=== PATIENT | female | born 1980 | race Hispanic/Latino ===

== ENCOUNTER 2018-02-14 09:35 | Emergency (ER) | payer SELFPAY ==
[2018-02-14] MEDS ORDERED: METHYLPREDNISOLONE 125 MG INJ ONE (09:57)
[2018-02-14] MEDS ORDERED: LEVALBUTEROL 1.25 MG/3 ML NEB ONE (09:57)
[2018-02-14 10:17] LABS: Absolute Lymphocytes (CBC) 2.1 K/uL (0.7-4.9); Absolute Monocytes 0.5 K/uL (0.1-1.3); Basophils % 0.8 % (0-1.3); Eosinophils % 2.4 % (0-4.4); Hematocrit 44.8 % (36.0-45.0); Lymphocytes % 24.3 % (15.3-44.8); MCH 28.9 pg (27.0-35.0); MCV 85.8 fL (80-100); MPV 9.1 fL (7.6-11.3); Monocytes % 5.1 % (3.3-12.3); RBC Red Blood Cell Count 5.22 M/uL (3.86-4.86)
[2018-02-14 10:22] LABS: Protime INR 0.97
[2018-02-14] MEDS ORDERED: ASPIRIN 81 MG CHEWABLE TABLET ONE (10:30)
[2018-02-14 10:39] LABS: ALT/SGPT 25 U/L (12-78); AST/SGOT 16 U/L (15-37); Albumin 3.9 g/dL (3.4-5.0); Alkaline Phosphatase 80 U/L (45-117); BUN Blood Urea Nitrogen 10 mg/dL (7-18); Bicarbonate 27 mmol/L (21-32); Bilirubin Direct 0.2 mg/dL (0-0.2); Bilirubin Total 0.6 mg/dL (0.2-1.0); Glucose Level 83 mg/dL (74-106); Lipase 127 U/L (73-393); Magnesium 2.4 mg/dL (1.8-2.4); NT PRO-BNP 199 pg/mL (<125); Sodium Level 141 mmol/L (136-145)
[2018-02-14] MEDS ORDERED: ACETAMINOPHEN 500 MG TAB ONE (11:13)
[2018-02-14] MEDS ORDERED: NITROGLYCERIN 0.4 MG/TAB SL ONE (11:13)
--- NOTE | 2018-02-14 13:30 | RAD REPORT ---
EXAM DESCRIPTION: CT - Chest For Pe Angio - 02/14/2018 1:22 pm CLINICAL HISTORY: Chest pain and sob COMPARISON: None. TECHNIQUE: Dynamically enhanced axial 3 mm thick images of the chest were obtained during administra tion of <100> mL Isovue 370 IV contrast. Coronal and oblique reconstruction images were generated and reviewed. Exam utilizes a protocol for optimal evaluation of pulmonary arterial tree. Maximum intensity projections 3D imaging was utilized All CT scans are performed using dose optimization technique as appropriate and may include automated exposure control or mA/KV [id number] according to patient size. FINDINGS: A pulmonary embolus is not seen. A thoracic aortic aneurysm is not noted. A pleural effusion is not seen. A pericardial effusion is not seen. A lung consolidation is not present. IMPRESSION: Negative for a pulmonary embolism.
--- NOTE | 2018-02-14 13:31 | RAD REPORT ---
EXAM DESCRIPTION: Kwadwo Parish (2 Views)02/14/2018 10:23 am CLINICAL HISTORY: Chest pain COMPARISON: 2007 FINDINGS: The lungs appear clear of acute infiltrate. The heart is normal size IMPRESSION: No acute abnormalities displayed
[2018-02-14 13:51] LABS: Urine Blood TRACE (NEG); Urine Glucose NEGATIVE (NEG); Urine Protein NEGATIVE (NEG)
[2018-02-14] MEDS ORDERED: IPRATROPIUM BROM 0.5MG/2.5ML ONE (14:00)
[2018-02-14] MEDS ORDERED: ALBUTEROL 2.5 MG/3 ML NEB SOL ONE (14:00)
[2018-02-14 14:13] LABS: Urine Bacteria 20-50 /HPF (<20); Urine Culture Reflex Order REFLEXED
--- NOTE | 2018-02-14 14:30 | EDPHYS ---
Physician Documentation [facility] Name: Adelso Denise Age: 37 yrs Sex: Female : 1980 Arrival Date: 02/14/2018 Time: 09:36 Bed 16 Private MD: None, None ED Physician Yasir Grove HPI: 02/14 14:42 This 37 yrs old Female presents to ER via Wheelchair with complaints of Chest wa Pain, WHEEZING. 14:42 The patient or guardian reports chest pain that is located primarily in the substernal wa area. The pain does not radiate. Associated signs and symptoms: Pertinent positives: cough, shortness of breath, Pertinent negatives: abdominal pain, dizziness, lower extremity pain, lower extremity swelling, lightheadedness, near syncope, palpitations, vomiting. The chest pain is described as a heaviness. Duration: The patient or guardian reports a single episode, that is still ongoing, and worsening. Modifying factors: The symptoms are alleviated by nothing. the symptoms are aggravated by nothing. Severity of pain: At its worst the pain was moderate in the emergency department the pain is unchanged. The patient has experienced similar episodes in the past, a few times. The patient has not recently seen a physician. smoker. states living at a hse with 10 pets. also smokes cigarettes. does not take her labetalol because cannot afford it. . 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 - Social history:: Smoking status: Patient uses tobacco products, smokes one-half pack cigarettes per day. - Ebola Screening: : No symptoms or risks identified at this time. - Family history:: not pertinent. - Hospitalizations: : No recent hospitalization is reported. ROS: 14:47 Constitutional: Negative for fever, chills, and weight loss, Eyes: Negative for injury, wa pain, redness, and discharge, ENT: Negative for injury, pain, and discharge, Neck: Negative for injury, pain, and swelling, Abdomen/GI: Negative for abdominal pain, nausea, vomiting, diarrhea, and constipation, Back: Negative for injury and pain, : Negative for injury, bleeding, discharge, and swelling, MS/Extremity: Negative for injury and deformity, Skin: Negative for injury, rash, and discoloration, Neuro: Negative for headache, weakness, numbness, tingling, and seizure, Psych: Negative for depression, anxiety, suicide ideation, homicidal ideation, and hallucinations. 14:47 Cardiovascular: Positive for chest pain, with cough, Negative for edema, orthopnea, palpitations, paroxysmal nocturnal dyspnea. 14:47 Respiratory: Positive for cough, with no reported sputum, shortness of breath, at rest. wheezing, inspiratory, expiratory, Negative for hemoptysis, orthopnea, pleurisy. 14:47 All other systems are negative. Exam: 14:48 Head/Face: Normocephalic, atraumatic. Eyes: Pupils equal round and reactive to light, wa extra-ocular motions intact. Lids and lashes normal. Conjunctiva and sclera are non-icteric and not injected. Cornea within normal limits. Periorbital areas with no swelling, redness, or edema. ENT: Nares patent. No nasal discharge, no septal abnormalities noted. Tympanic membranes are normal and external auditory canals are clear. Oropharynx with no redness, swelling, or masses, exudates, or evidence of obstruction, uvula midline. Mucous membranes moist. Neck: Trachea midline, no thyromegaly or masses palpated, and no cervical lymphadenopathy. Supple, full range of motion without nuchal rigidity, or vertebral point tenderness. No Meningismus. Chest/axilla: Normal chest wall appearance and motion. Nontender with no deformity. No lesions are appreciated. Abdomen/GI: Soft, non-tender, with normal bowel sounds. No distension or tympany. No guarding or rebound. No evidence of tenderness throughout. Back: No spinal tenderness. No costovertebral tenderness. Full range of motion. Skin: Warm, dry with normal turgor. Normal color with no rashes, no lesions, and no evidence of cellulitis. MS/ Extremity: Pulses equal, no cyanosis. Neurovascular intact. Full, normal range of motion. Neuro: Awake and alert, GCS 15, oriented to person, place, time, and situation. Cranial nerves II-XII grossly intact. Motor strength 5/5 in all extremities. Sensory grossly intact. Cerebellar exam normal. Normal gait. Psych: Awake, alert, with orientation to person, place and time. Behavior, mood, and affect are within normal limits. 14:48 Constitutional: The patient appears alert, in obvious distress, mildly distressed, due to pain and shortness of breath. audible wheezing noted. 14:48 Cardiovascular: Rate: normal, Rhythm: regular, Pulses: no pulse deficits are appreciated, Heart sounds: normal, Edema: is not appreciated, JVD: is not appreciated. 14:48 Respiratory: mild respiratory distress is noted, Respirations: labored breathing, Breath sounds: wheezing: expiratory is heard diffusely, Respiratory rate: tachypneic Vital Signs: 09:40 BP 200 / 112; Pulse 81; Resp 20; Pulse Ox 97% ; Weight 81.65 kg; Height 5 ft. 4 in. sv (162.56 cm); Pain 5/10; 10:36 BP 181 / 113; Pulse 73; Resp 18; Pulse Ox 100% on 2 lpm NC; sv 11:49 BP 164 / 97; Pulse 64; Resp 18; Pulse Ox 98% on 2 lpm NC; sv 13:58 BP 158 / 97; Pulse 70; Resp 18; Pulse Ox 100% on Nebulizer Mask; tl3 14:45 BP 147 / 94; Pulse 67; Resp 18; Pulse Ox 100% on R/A; tl3 09:40 Body Mass Index 30.90 (81.65 kg, 162.56 cm) sv MDM: 09:41 Patient medically screened. ny 14:49 Differential diagnosis: acute myocardial infarction, anxiety, coronary artery disease wa congestive heart failure myocarditis, pericarditis, pneumonia, pulmonary embolus, unstable angina. 14:50 Data reviewed: vital signs, nurses notes, lab test result(s), EKG, radiologic studies. ny Test interpretation: by ED physician or midlevel provider: CXR noted wnl. labs noted wnl. EKG: HR 81. . 15:01 Response to treatment: the patient's symptoms have markedly improved after treatment. ny ED course: discussed the need to quit smoking. started HCTZ. gave close f/u. advised immediate return if persistent or worsening symptoms. 02/14 09:49 Order name: BMP; Complete Time: 10:48 ny 02/14 09:49 Order name: CBC with Diff; Complete Time: 10:48 ny 02/14 09:49 Order name: D-Dimer; Complete Time: 10:48 ny 02/14 09:49 Order name: Hepatic Function; Complete Time: 10:48 ny 02/14 09:49 Order name: Lipase; Complete Time: 10:48 02/14 09:49 Order name: Magnesium; Complete Time: 10:48 ny 02/14 09:49 Order name: XRAY Chest Pa And Lat (2 Views); Complete Time: 13:49 ny 02/14 09:49 Order name: NT PRO-BNP; Complete Time: 10:48 ny 02/14 09:49 Order name: PT-INR; Complete Time: 10:48 ny 02/14 09:49 Order name: Troponin (emerg Dept Use Only); Complete Time: 10:48 ny 02/14 13:08 Order name: Urine Microscopic Only [facility] 02/14 13:20 Order name: Urine Dipstick--Ancillary (enter results) 02/14 13:20 Order name: Urine --Ancillary (enter results) 02/14 14:15 Order name: Urine Culture [facility] 02/14 09:49 Order name: EKG; Complete Time: 09:50 ny 02/14 09:49 Order name: Cardiac monitoring; Complete Time: 10:16 ny 02/14 09:49 Order name: EKG - Nurse/Tech; Complete Time: 10:16 ny 02/14 09:49 Order name: IV Saline Lock; Complete Time: 10:16 ny 02/14 09:49 Order name: Labs collected and sent; Complete Time: 10:16 ny 02/14 09:49 Order name: O2 Per Protocol; Complete Time: 10:16 ny 02/14 09:49 Order name: O2 Sat Monitoring; Complete Time: 10:16 ny 02/14 10:51 Order name: CT Chest For PE Angio; Complete Time: 13:49 ny 02/14 09:49 Order name: Urine Dipstick-Ancillary (obtain specimen); Complete Time: 13:07 ny Administered Medications: 09:51 CANCELLED (Physician Discretion): Nitro-Bid Ointment 2 % 0.5 inches Transdermal once ny 09:55 Drug: Xopenex 1.25 mg Route: Inhalation; sv 10:01 Drug: SOLU-Medrol 125 mg Route: IVP; Site: right antecubital; sv 10:29 Follow up: Response: No adverse reaction sv 10:28 Drug: Aspirin Chewable Tablet 324 mg Route: PO; sv 11:12 Follow up: Response: No adverse reaction sv 11:11 Drug: Nitroglycerin 0.4 mg Route: Sublingual; sv 11:30 Follow up: Response: No adverse reaction sv 11:11 Drug: Tylenol 1000 mg Route: PO; sv 11:30 Follow up: Response: No adverse reaction sv 14:00 Drug: Albuterol 2.5 mg Route: Inhalation; tl3 14:47 Follow up: Response: No adverse reaction tl3 14:00 Drug: AtroVENT Aerosol 0.5 mg Route: Inhalation; tl3 14:46 Follow up: Response: No adverse reaction tl3 Disposition: 02/14/18 14:30 Discharged to Home. Impression: Acute Chest pain, Acute Cough, Hypertension. - Condition is Stable. - Discharge Instructions: Nonspecific Chest Pain, Hypertension, Shortness of Breath, [id number], Cough, Adult, [id number]. - Prescriptions for Prednisone 20 mg Oral Tablet - take 1 tablet by ORAL route once daily for 5 days; 5 tablet. Hydrochlorothiazide 25 mg Oral Tablet - take 1 tablet by ORAL route once daily .; 30 tablet. Albuterol Sulfate 2.5 mg /3 mL (0.083 %) Inhalation Solution for Nebulization - inhale 1 unit by NEBULIZATION route every 8 hours As needed; 1 box. Albuterol Sulfate 90 mcg/actuation - inhale 1-2 puff by INHALATION route every 4-6 hours; 1 Inhaler. - Medication Reconciliation Form, Thank You Letter, Antibiotic Education, Prescription Opioid Use, Work release form form. - Follow up: Miles Srivastava MD; When: 1 - 2 days; Reason: Re-evaluation by your physician. - Problem is new. - Symptoms have improved. - Notes: quit smoking. take blood pressure medicine as prescribed. follow up with primary care for further care as discussed. use breathing treatments as prescribed as needed. return to ER immediately for worsning pain, dizziness, and or shortness of breath Signatures: Dispatcher [employer] Violette Schilling RN RN Yasir Liu MD MD wa Lowrey, Tammy, RN RN tl3 Corrections: (The following items were deleted from the chart) 09:51 09:51 Nitro-Bid Ointment 2 % 0.5 inches Transdermal once ordered. [facility] 15:35 14:30 02/14/2018 14:30 Discharged to Home. Impression: Acute Chest pain; Acute Cough; sv Hypertension. Condition is Stable. Forms are Medication Reconciliation Form, Thank You Letter, Antibiotic Education, Prescription Opioid Use. Follow up: Miles Srivastava; When: 1 - 2 days; Reason: Re-evaluation by your physician. Problem is new. Symptoms have improved. ny
--- NOTE | 2018-02-14 14:30 | ER ---
Nurse's Notes [facility] Name: Adelso Denise Age: 37 yrs Sex: Female : 1980 Arrival Date: 02/14/2018 Time: 09:36 Bed 16 Private MD: None, None Diagnosis: Acute Chest pain;Acute Cough;Hypertension Presentation: 02/14 09:38 Presenting complaint: Patient states: dyspnea for a "couple of weeks", worse last sv night. Chest tightness started last night. c/o wheezing. Transition of care: patient was not received from another setting of care. Onset of symptoms was February 13, 2018. Risk Assessment: Do you want to hurt yourself or someone else? Patient reports no desire to harm self or others. Initial Sepsis Screen: Does the patient meet any 2 criteria? No. Patient's initial sepsis screen is negative. Does the patient have a suspected source of infection? No. Patient's initial sepsis screen is negative. Care prior to arrival: None. 09:38 Method Of Arrival: Wheelchair sv 09:38 Acuity: ALBERTO 3 sv Triage Assessment: 09:40 General: Appears uncomfortable, well developed, Behavior is calm, cooperative, sv appropriate for age. Pain: Complains of pain in chest Pain currently is 5 out of 10 on a pain scale. Quality of pain is described as tightness Pain began 1 day ago. Is intermittent, Aggravated by increased activity, breathing. EENT: No signs and/or symptoms were reported regarding the EENT system. Neuro: Level of Consciousness is awake, alert, obeys commands, Oriented to person, place, time, situation, Moves all extremities. Full function Gait is steady, Speech is normal. Cardiovascular: Reports chest pain, shortness of breath, Heart tones S1 S2 present Patient's skin is warm and dry. Pulses are 3+ in right radial artery and left radial artery Rhythm is sinus rhythm. Respiratory: Reports shortness of breath at rest on exertion wheezing since last night Airway is patent Respiratory effort is even, labored, Respiratory pattern is regular, symmetrical, Breath sounds with wheezes bilaterally. Derm: Skin is pink, warm \\T\\ dry. 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 - Social history:: Smoking status: Patient uses tobacco products, smokes one-half pack cigarettes per day. - Ebola Screening: : No symptoms or risks identified at this time. - Family history:: not pertinent. - Hospitalizations: : No recent hospitalization is reported. Screenin:45 Abuse screen: Denies threats or abuse. Denies injuries from another. Nutritional sv screening: No deficits noted. Tuberculosis screening: No symptoms or risk factors identified. Fall Risk None identified. Assessment: 10:22 Reassessment: Patient appears in no apparent distress at this time. Patient and/or sv family updated on plan of care and expected duration. Pain level reassessed. Patient is alert, oriented x 3, equal unlabored respirations, skin warm/dry/pink. Patient states feeling better. Patient states symptoms have improved. 11:11 Reassessment: Patient appears in no apparent distress at this time. Patient and/or sv family updated on plan of care and expected duration. Pain level reassessed. Patient is alert, oriented x 3, equal unlabored respirations, skin warm/dry/pink. Patient states feeling better. Patient states symptoms have improved. 13:09 Reassessment: Called CT to inform them that the pt. UPT is negative. rb1 13:58 Reassessment: Patient and/or family updated on plan of care and expected duration. Pain tl3 level reassessed. Patient is alert, oriented x 3, equal unlabored respirations, skin warm/dry/pink. Dr Grubbs at bedside discussing POC with pt. 14:45 Reassessment: Patient appears in no apparent distress at this time. No changes from tl3 previously documented assessment. Patient and/or family updated on plan of care and expected duration. Pain level reassessed. Patient is alert, oriented x 3, equal unlabored respirations, skin warm/dry/pink. pt feels much better. 14:54 Pain: Pain does not radiate. tl3 Vital Signs: 09:40 BP 200 / 112; Pulse 81; Resp 20; Pulse Ox 97% ; Weight 81.65 kg; Height 5 ft. 4 in. sv (162.56 cm); Pain 5/10; 10:36 BP 181 / 113; Pulse 73; Resp 18; Pulse Ox 100% on 2 lpm NC; sv 11:49 BP 164 / 97; Pulse 64; Resp 18; Pulse Ox 98% on 2 lpm NC; sv 13:58 BP 158 / 97; Pulse 70; Resp 18; Pulse Ox 100% on Nebulizer Mask; tl3 14:45 BP 147 / 94; Pulse 67; Resp 18; Pulse Ox 100% on R/A; tl3 09:40 Body Mass Index 30.90 (81.65 kg, 162.56 cm) sv ED Course: 09:36 Patient arrived in ED. sb2 09:36 None, None is Private Physician. sb2 09:40 Arm band placed on right wrist. Patient placed in an exam room, on a stretcher. sv 09:41 Yasir Grove MD is Attending Physician. wa 09:42 Violette Baires, JACK is Primary Nurse. sv 09:45 Oxygen administration via nasal cannula \\T\\ 2L/min. sv 09:45 Patient has correct armband on for positive identification. Placed in gown. Bed in low sv position. Call light in reach. front desk monitor on. Pulse ox on. NIBP on. Door closed. Head of bed elevated. 09:55 Triage completed. sv 10:00 Initial lab(s) drawn, by me, sent to lab. Inserted saline lock: 20 gauge in right sv antecubital area, using aseptic technique. Blood collected. Flushed right antecubital with 5 ml normal saline. 10:20 X-ray completed. Patient tolerated procedure well. kw 10:21 XRAY Chest Pa And Lat (2 Views) In Process Unspecified. EDMS 10:56 Radiology exam delayed due to test not completed at this time. vr 12:36 Radiology exam delayed due to test not completed at this time. mw3 13:06 Urine collected: hat, cloudy. dh3 13:22 CT Chest For PE Angio In Process Unspecified. EDMS 14:29 Miles Srivastava MD is Referral Physician. wa 14:44 Abby Sierra, JACK is Primary Nurse. tl3 14:52 No provider procedures requiring assistance completed. IV discontinued, intact, tl3 bleeding controlled, No redness/swelling at site. Pressure dressing applied. Administered Medications: 09:51 CANCELLED (Physician Discretion): Nitro-Bid Ointment 2 % 0.5 inches Transdermal once wa 09:55 Drug: Xopenex 1.25 mg Route: Inhalation; sv 10:01 Drug: SOLU-Medrol 125 mg Route: IVP; Site: right antecubital; sv 10:29 Follow up: Response: No adverse reaction sv 10:28 Drug: Aspirin Chewable Tablet 324 mg Route: PO; sv 11:12 Follow up: Response: No adverse reaction sv 11:11 Drug: Nitroglycerin 0.4 mg Route: Sublingual; sv 11:30 Follow up: Response: No adverse reaction sv 11:11 Drug: Tylenol 1000 mg Route: PO; sv 11:30 Follow up: Response: No adverse reaction sv 14:00 Drug: Albuterol 2.5 mg Route: Inhalation; tl3 14:47 Follow up: Response: No adverse reaction tl3 14:00 Drug: AtroVENT Aerosol 0.5 mg Route: Inhalation; tl3 14:46 Follow up: Response: No adverse reaction tl3 Outcome: 14:30 Discharge ordered by MD. wa 14:52 Discharged to home ambulatory. tl3 14:52 Condition: stable 14:52 Discharge instructions given to patient, family, Instructed on discharge instructions, follow up and referral plans. medication usage, need for smoking cessation, importance of taking meds as ordered, instructed on proper Albuterol inhalation techniques 15:35 Patient left the ED. sv Addendum: 02/17/2018 12:03 Addendum: Culture Results: Positive urine culture. Patient was not prescribed i w antibiotics at discharge. Report given to OSVALDO for further evaluation and then to security engineer for follow up with patient. Phone call Attempt #1 pt has no urinary symptoms, no further action needed. Signatures: Dispatcher [employer] EDViolette Jones RN Mayr Berg RN Jovita Acuña Kimberlee kw Barber, Rebecca RN RN rb1 Ana Petersen 3 Yasir Grove MD MD wa Billeau, Sheri sb2 Lowrey, Tammy, RN RN tl3 Marline Rivera 3
[2018-02-14 15:45] VITALS: O2SAT 100
[2018-02-14 15:46] VITALS: BP 147/94
--- NOTE | 2018-02-15 16:19 | EKG ---
Test Date: 2018-02-14 Test Time: 09:44:31 Cardiopulmonary Supervisor: MARTHA MEASUREMENT RESULTS: Intervals: Rate: 81 UT: 156 QRSD: 76 QT: 390 QTc: 453 [place]: P: 68 UT: 156 QRS: 53 T: 70 INTERPRETIVE STATEMENTS: Normal sinus rhythm Normal ECG Compared to ECG 10/06/2013 16:31:17 No significant changes Electronically Signed On 02-15-18 16:19:01 CDT by Sandro Voss
== END 2018-02-14 15:35 | disposition home or self-care (01) ==
LOC: ER 09:35
DX: R07.9 Chest pain, unspecified (principal); R06.2 Wheezing; F17.210 Nicotine dependence, cigarettes, uncomplicated; I10 Essential (primary) hypertension; R05 Cough; R06.02 Shortness of breath; N39.0 Urinary tract infection, site not specified
CPT/HCPCS: 36415; 71046; 71275; 80048; 80076; 81003; 81015; 81025; 83690; 83735; 83880; 84484; 85025; 85379; 85610; 87077; 87086; 87088; 87186; 93005; 96374; 99285; J2930; Q9967

== ENCOUNTER 2019-02-26 18:08 | Emergency (ER) | payer SELFPAY ==
--- OUTSIDE RECORDS SUMMARY | 2019-02-26 18:10 | XMS REPORT ---
:1980 [facility] Address [address] [place] [address] Dr. Ken [address] [place] [id number] Care Team Providers Name Role Phone Unavailable Unavailable Unavailable Problems This patient has no known problems. Allergies, Adverse Reactions, Alerts This patient has no known allergies or adverse reactions. Medications This patient has no known medications.
[2019-02-26] MEDS ORDERED: ALBUTEROL 2.5 MG/3 ML NEB SOL ONE (18:18)
[2019-02-26] MEDS ORDERED: IPRATROPIUM BROM 0.5MG/2.5ML ONE (18:18)
[2019-02-26] MEDS ORDERED: predniSONE 20 MG TAB ONE (19:22)
[2019-02-26] MEDS ORDERED: METHYLPREDNISOLONE 125 MG INJ ONE (19:22)
[2019-02-26] MEDS ORDERED: LEVALBUTEROL 1.25 MG/3 ML NEB ONE (19:22)
[2019-02-26] MEDS ORDERED: CEFTRIAXONE/SWI 1gm 1 GM/10 ML SYR ONE (19:23)
[2019-02-26] MEDS ORDERED: NA CHLORIDE 0.9% 1,000 ML ONE ×2 (19:23→21:34)
[2019-02-26] MEDS ORDERED: NA CHLORIDE 0.9% 250 ML ONE (19:23)
[2019-02-26] MEDS ORDERED: AZITHROMYCIN 500 MG INJ IVPB ONE (19:23)
[2019-02-26 19:41] LABS: Absolute Lymphocytes (CBC) 1.2 K/uL (0.7-4.9); Basophils % 0.3 % (0-1.3); Hematocrit 44.9 % (36.0-45.0); Lymphocytes % 7.3 % (15.3-44.8); MPV 9.1 fL (7.6-11.3); RBC Red Blood Cell Count 5.05 M/uL (3.86-4.86)
[2019-02-26 20:07] LABS: Protime INR 1.03
[2019-02-26 20:14] LABS: ALT/SGPT 22 U/L (12-78); AST/SGOT 22 U/L (15-37); Albumin 4.1 g/dL (3.4-5.0); Alkaline Phosphatase 84 U/L (45-117); BUN Blood Urea Nitrogen 11 mg/dL (7-18); Bicarbonate 24 mmol/L (21-32); Bilirubin Direct 0.3 mg/dL (0-0.2); Bilirubin Total 1.4 mg/dL (0.2-1.0); Glucose Level 108 mg/dL (74-106); Magnesium 2.2 mg/dL (1.8-2.4); NT PRO-BNP 200 pg/mL (<125); Potassium 4.1 mmol/L (3.5-5.1); Protein, Total 8.4 g/dL (6.4-8.2); Sodium Level 139 mmol/L (136-145); Troponin (Emerg Dept Use Only) < 0.02 ng/mL (0.0-0.045)
--- NOTE | 2019-02-26 20:16 | RAD REPORT ---
EXAM DESCRIPTION: Kwadwo Single View02/26/2019 7:52 pm CLINICAL HISTORY: cough COMPARISON: 2018 FINDINGS: The lungs appear clear of acute infiltrate. The heart is normal size IMPRESSION: No acute abnormalities displayed
[2019-02-26 20:50] LABS: Blood Morphology Comment NOT SEEN (NOT SEEN); Platelet Estimate ADEQ; Urine White Blood Cell Casts OK
--- NOTE | 2019-02-26 21:14 | EDPHYS ---
Physician Documentation [facility] Name: Adelso Denise Age: 39 yrs Sex: Female : 1980 Arrival Date: 02/26/2019 Time: 18:13 Bed 14 Private MD: ED Physician Ike Hicks HPI: 02/26 19:08 This 39 yrs old Female presents to ER via Ambulatory with complaints of Asthma cristo Exacerbation. 19:08 The patient presents to the emergency department with wheezing, Current therapy: cristo albuterol inhaler, that began without any particular precipitating event. Onset: The symptoms/episode began/occurred 3 day(s) ago. Modifying factors: The symptoms are alleviated by nothing, the symptoms are aggravated by exertion, smoke. Associated signs and symptoms: Pertinent positives: fever. Severity of symptoms: At their worst the symptoms were moderate in the emergency department the symptoms have improved mildly. The patient has not experienced similar symptoms in the past. 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 - Social history:: Smoking status: Patient uses tobacco products, smokes one-half pack cigarettes per day. - Ebola Screening: : Patient negative for fever greater than or equal to 101.5 degrees Fahrenheit, and additional compatible Ebola Virus Disease symptoms Patient denies exposure to infectious person Patient denies travel to an Ebola-affected area in the 21 days before illness onset No symptoms or risks identified at this time. - Family history:: not pertinent. ROS: 19:08 Constitutional: Negative for fever, chills, and weight loss, Eyes: Negative for injury, cristo pain, redness, and discharge, ENT: Negative for injury, pain, and discharge, Neck: Negative for injury, pain, and swelling, Abdomen/GI: Negative for abdominal pain, nausea, vomiting, diarrhea, and constipation, Back: Negative for injury and pain, : Negative for injury, bleeding, discharge, and swelling, MS/Extremity: Negative for injury and deformity, Skin: Negative for injury, rash, and discoloration, Neuro: Negative for headache, weakness, numbness, tingling, and seizure, Psych: Negative for depression, anxiety, suicide ideation, homicidal ideation, and hallucinations, Allergy/Immunology: Negative for hives, rash, and allergies, Endocrine: Negative for neck swelling, polydipsia, polyuria, polyphagia, and marked weight changes. 19:08 Cardiovascular: Positive for palpitations. 19:08 Respiratory: Positive for cough, shortness of breath, wheezing, inspiratory, expiratory. Exam: 19:08 Constitutional: This is a well developed, well nourished patient who is awake, alert, cristo and in no acute distress. Head/Face: Normocephalic, atraumatic. Eyes: Pupils equal round and reactive to light, extra-ocular motions intact. Lids and lashes normal. Conjunctiva and sclera are non-icteric and not injected. Cornea within normal limits. Periorbital areas with no swelling, redness, or edema. ENT: Nares patent. No nasal discharge, no septal abnormalities noted. Tympanic membranes are normal and external auditory canals are clear. Oropharynx with no redness, swelling, or masses, exudates, or evidence of obstruction, uvula midline. Mucous membranes moist. Neck: Trachea midline, no thyromegaly or masses palpated, and no cervical lymphadenopathy. Supple, full range of motion without nuchal rigidity, or vertebral point tenderness. No Meningismus. Chest/axilla: Normal chest wall appearance and motion. Nontender with no deformity. No lesions are appreciated. Abdomen/GI: Soft, non-tender, with normal bowel sounds. No distension or tympany. No guarding or rebound. No evidence of tenderness throughout. Back: No spinal tenderness. No costovertebral tenderness. Full range of motion. Skin: Warm, dry with normal turgor. Normal color with no rashes, no lesions, and no evidence of cellulitis. MS/ Extremity: Pulses equal, no cyanosis. Neurovascular intact. Full, normal range of motion. Neuro: Awake and alert, GCS 15, oriented to person, place, time, and situation. Cranial nerves II-XII grossly intact. Motor strength 5/5 in all extremities. Sensory grossly intact. Cerebellar exam normal. Normal gait. Psych: Awake, alert, with orientation to person, place and time. Behavior, mood, and affect are within normal limits. 19:08 Cardiovascular: Rate: tachycardic, Rhythm: regular, Pulses: Pulses are 4+ in bilateral radial, brachial, femoral, popliteal, posterior tibial and and dorsalis pedis arteries.. Heart sounds: normal, Edema: is not appreciated, JVD: is not appreciated. Vital Signs: 18:23 BP 161 / 101; Pulse 105; Resp 24 S; Pulse Ox 96% on R/A; Weight 77.11 kg; Height 5 ft. iw 3 in. (160.02 cm); 19:58 BP 181 / 104; Pulse 105; Resp 19; Pulse Ox 97% on R/A; jd3 21:41 BP 175 / 96; Pulse 95; Resp 20 S; Pulse Ox 96% on R/A; jd3 22:42 BP 173 / 97; Pulse 93; Resp 19 S; Pulse Ox 96% on R/A; Pain 0/10; jd3 18:23 Body Mass Index 30.11 (77.11 kg, 160.02 cm) iw MDM: 18:15 Patient medically screened. [facility] 19:10 Data reviewed: vital signs, nurses notes, lab test result(s), EKG, radiologic studies, cristo plain films. 02/26 19:08 Order name: Basic Metabolic Panel; Complete Time: 20:41 [facility] 02/26 19:08 Order name: CBC with Diff; Complete Time: 20:54 [facility] 02/26 20:41 Interpretation: Normal except: WBC 16.0; RBC 5.05; HGB 15.4. cp 02/26 19:08 Order name: LFT's; Complete Time: 20:41 [facility] 02/26 19:08 Order name: Magnesium; Complete Time: 20:41 [facility] 02/26 19:08 Order name: NT PRO-BNP; Complete Time: 20:41 [facility] 02/26 19:08 Order name: PT-INR; Complete Time: 20:41 [facility] 02/26 19:08 Order name: Troponin (emerg Dept Use Only); Complete Time: 20:41 [facility] 02/26 19:08 Order name: XRAY Chest (1 view); Complete Time: 20:41 [facility] 02/26 19:08 Order name: Blood Culture Adult (2) [facility] 02/26 20:50 Order name: CBC Smear Scan; Complete Time: 20:54 EDMS 02/26 19:08 Order name: EKG; Complete Time: 19:10 [facility] 02/26 19:08 Order name: Cardiac monitoring; Complete Time: 19:54 [facility] 02/26 19:08 Order name: EKG - Nurse/Tech; Complete Time: 19:55 [facility] 02/26 19:08 Order name: IV Saline Lock; Complete Time: 19:55 [facility] 02/26 19:08 Order name: Labs collected and sent; Complete Time: 19:55 [facility] 02/26 19:08 Order name: O2 Per Protocol; Complete Time: 19:55 [facility] 02/26 19:08 Order name: O2 Sat Monitoring; Complete Time: 19:55 [facility] Administered Medications: 18:19 Drug: Albuterol - atroVENT (3:1) (2.5 mg - 0.5 mg) 3 ml Route: Nebulizer; tw2 18:56 Follow up: Response: No adverse reaction ph 19:33 Drug: NS 0.9% 1000 ml Route: IV; Rate: 1 bolus; Site: right antecubital; jd3 20:30 Follow up: Response: No adverse reaction; IV Status: Completed infusion; IV Intake: jd3 1000ml 19:34 Drug: SOLU-Medrol 125 mg Route: IVP; Site: right antecubital; jd3 20:30 Follow up: Response: No adverse reaction jd3 19:34 Drug: predniSONE 40 mg Route: PO; jd3 20:30 Follow up: Response: No adverse reaction jd3 19:34 Drug: Xopenex 2.5 mg Route: Inhalation; jd3 20:30 Follow up: Response: No adverse reaction jd3 19:50 Drug: Rocephin 1 grams Route: IV; Rate: per protocol; Site: right antecubital; jd3 19:54 Follow up: Response: No adverse reaction; IV Status: Completed infusion; IV Intake: [id number] 19:54 Drug: Zithromax 500 mg Route: IVPB; Infused Over: 1 hrs; Site: right antecubital; jd3 20:50 Follow up: Response: No adverse reaction; IV Status: Completed infusion; IV Intake: jd3 250ml 21:37 Drug: NS 0.9% 1000 ml Route: IV; Rate: 1 bolus; Site: right antecubital; jd3 22:46 Follow up: Response: No adverse reaction; IV Status: Completed infusion; IV Intake: jd3 1000ml 21:37 Drug: cloNIDine 0.1 mg Route: PO; jd3 22:46 Follow up: Response: No adverse reaction jd3 21:37 Drug: Lisinopril 20 mg Route: PO; jd3 22:46 Follow up: Response: No adverse reaction jd3 21:57 Drug: Tylenol 1000 mg Route: PO; jd3 22:45 Follow up: Response: No adverse reaction jd3 Disposition: 02/26/19 21:12 Discharged to Home. Impression: Acute upper respiratory infection, unspecified, Asthma, Tobacco abuse counseling, Tobacco use, Hypertensive heart disease. - Condition is Stable. - Discharge Instructions: Asthma, Adult, Steps to Quit Smoking, Smoking Hazards, Upper Respiratory Infection, Adult, Upper Respiratory Infection, Adult, Gsck-nm-Dkum, Asthma, Adult, Epcc-mn-[id number], Steps to Quit Smoking, Zlvh-qh-Gksb, Hypertension. - Prescriptions for Albuterol Sulfate 2.5 mg /3 mL (0.083 %) Inhalation Solution for Nebulization - inhale 1 unit by NEBULIZATION route every 8 hours As needed; 1 box. Prednisone 20 mg Oral Tablet - take 2 tablet by ORAL route once daily for 5 days; 10 tablet. Albuterol Sulfate 90 mcg/actuation - inhale 1-2 puff by INHALATION route every 4-6 hours; 1 Inhaler. Zithromax 500 mg Oral Tablet - take 1 tablet by ORAL route once daily for 5 days; 5 tablet. Lisinopril 10 mg Oral Tablet - take 1 tablet by ORAL route once daily; 20 tablet. - Medication Reconciliation Form, Thank You Letter, Antibiotic Education, Prescription Opioid Use, Work release form form. - Follow up: Private Physician; When: 2 - 3 days; Reason: Recheck today's complaints, Continuance of care, Re-evaluation by your physician. Follow up: Miles Srivastava; When: 2 - 3 days; Reason: Recheck today's complaints, Re-evaluation by your physician. - Problem is new. - Symptoms have improved. Signatures: Dispatcher [employer] Ike Kapadia MD MD cha Williams, Irene, RN RN iw Page, Corey, PA PA cp Wise, Tara, RN RN tw2 Joshua De Santiago RN RN jd3 Sandra Tirado RN ph Corrections: (The following items were deleted from the chart) 21:13 21:12 02/26/2019 21:12 Discharged to Home. Impression: Acute upper respiratory cp infection, unspecified; Asthma; Tobacco abuse counseling; Tobacco use. Condition is Stable. Discharge Instructions: Asthma, Adult, Steps to Quit Smoking, Smoking Hazards, Upper Respiratory Infection, Adult, Upper Respiratory Infection, Adult, Kjas-ga-Cukk, Asthma, Adult, Ktbr-vu-Mpzr, Steps to Quit Smoking, Nwry-kg-Gxfr. Prescriptions for Albuterol Sulfate 2.5 mg /3 mL (0.083 %) Inhalation Solution for Nebulization - inhale 1 unit by NEBULIZATION route every 8 hours As needed; 1 box, Prednisone 20 mg Oral Tablet - take 2 tablet by ORAL route once daily for 5 days; 10 tablet, Albuterol Sulfate 90 mcg/actuation - inhale 1-2 puff by INHALATION route every 4-6 hours; 1 Inhaler, Zithromax 500 mg Oral Tablet - take 1 tablet by ORAL route once daily for 5 days; 5 tablet. and Forms are Medication Reconciliation Form, Thank You Letter, Antibiotic Education, Prescription Opioid Use. Follow up: Private Physician; When: 2 - 3 days; Reason: Recheck today's complaints, Continuance of care, Re-evaluation by your physician. Follow up: Miles Srivastava; When: 2 - 3 days; Reason: Recheck today's complaints, Re-evaluation by your physician. Problem is new. Symptoms have improved. cp 22:47 21:13 02/26/2019 21:12 Discharged to Home. Impression: Acute upper respiratory jd3 infection, unspecified; Asthma; Tobacco abuse counseling; Tobacco use; Hypertensive heart disease. Condition is Stable. Discharge Instructions: Asthma, Adult, Steps to Quit Smoking, Smoking Hazards, Upper Respiratory Infection, Adult, Upper Respiratory Infection, Adult, Isro-de-Rsva, Asthma, Adult, Bony-vm-Ikod, Steps to Quit Smoking, Teem-bd-Kjfh, Hypertension. Prescriptions for Albuterol Sulfate 2.5 mg /3 mL (0.083 %) Inhalation Solution for Nebulization - inhale 1 unit by NEBULIZATION route every 8 hours As needed; 1 box, Prednisone 20 mg Oral Tablet - take 2 tablet by ORAL route once daily for 5 days; 10 tablet, Albuterol Sulfate 90 mcg/actuation - inhale 1-2 puff by INHALATION route every 4-6 hours; 1 Inhaler, Zithromax 500 mg Oral Tablet - take 1 tablet by ORAL route once daily for 5 days; 5 tablet, Lisinopril 10 mg Oral Tablet - take 1 tablet by ORAL route once daily; 20 tablet. and Forms are Medication Reconciliation Form, Thank You Letter, Antibiotic Education, Prescription Opioid Use. Follow up: Private Physician; When: 2 - 3 days; Reason: Recheck today's complaints, Continuance of care, Re-evaluation by your physician. Follow up: Miles Srivastava; When: 2 - 3 days; Reason: Recheck today's complaints, Re-evaluation by your physician. Problem is new. Symptoms have improved. cp
--- NOTE | 2019-02-26 21:14 | ER ---
Nurse's Notes [facility] Name: Adelso Denise Age: 39 yrs Sex: Female : 1980 Arrival Date: 02/26/2019 Time: 18:13 Bed 14 Private MD: Diagnosis: Acute upper respiratory infection, unspecified;Asthma;Tobacco abuse counseling;Tobacco use;Hypertensive heart disease Presentation: 02/26 18:22 Presenting complaint: Patient states: asthma exacerbation X 2 days, +cough, +fever, iw labored breathing. Transition of care: patient was not received from another setting of care. Onset of symptoms was February 24, 2019. Risk Assessment: Do you want to hurt yourself or someone else? Patient reports no desire to harm self or others. Initial Sepsis Screen: Does the patient meet any 2 criteria? No. Patient's initial sepsis screen is negative. Does the patient have a suspected source of infection? No. Patient's initial sepsis screen is negative. Care prior to arrival: None. 18:22 Method Of Arrival: Ambulatory iw 18:22 Acuity: ALBERTO 3 iw 18:24 Presenting complaint: Patient states: also states she has chest pain when she coughs. 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 - Social history:: Smoking status: Patient uses tobacco products, smokes one-half pack cigarettes per day. - Ebola Screening: : Patient negative for fever greater than or equal to 101.5 degrees Fahrenheit, and additional compatible Ebola Virus Disease symptoms Patient denies exposure to infectious person Patient denies travel to an Ebola-affected area in the 21 days before illness onset No symptoms or risks identified at this time. - Family history:: not pertinent. Screenin:30 Abuse screen: Denies threats or abuse. Denies injuries from another. Nutritional ph screening: No deficits noted. Tuberculosis screening: No symptoms or risk factors identified. Fall Risk None identified. Assessment: 18:28 General: Appears in no apparent distress. uncomfortable, well groomed, Behavior is ph calm, cooperative, appropriate for age, Reports fever for 12-24 hours. Pain: Complains of pain in chest. Neuro: Level of Consciousness is awake, alert, obeys commands, Oriented to person, place, time, situation. Cardiovascular: Reports chest pain, shortness of breath, Capillary refill < 3 seconds in bilateral fingers Patient's skin is warm and dry. Respiratory: Reports shortness of breath at rest cough that is productive, labored breathing pain with cough pain with respiration Airway is patent Respiratory effort is even, labored, Respiratory pattern is tachypnea Breath sounds with wheezes bilaterally. GI: Reports nausea, vomiting, Patient currently denies abdominal pain. Derm: Skin is intact, Skin is pink, warm \T\ dry. Musculoskeletal: Circulation, motion, and sensation intact. Range of motion: intact in all extremities. 19:55 General: Appears in no apparent distress. uncomfortable, well groomed, Behavior is jd3 calm, cooperative, appropriate for age. Pain: Complains of pain in chest Quality of pain is described as aching, pressure. Neuro: Level of Consciousness is awake, alert, obeys commands, Oriented to person, place, time, situation. Cardiovascular: Capillary refill < 3 seconds Patient's skin is warm and dry. Respiratory: Reports shortness of breath at rest cough that is productive, reports some relief after medication. Airway is patent Respiratory effort is even, unlabored, Respiratory pattern is regular, symmetrical. GI: No signs and/or symptoms were reported involving the gastrointestinal system. : No signs and/or symptoms were reported regarding the genitourinary system. EENT: No signs and/or symptoms were reported regarding the EENT system. Derm: Skin is intact, Skin is dry, Skin is normal, Skin temperature is warm. Musculoskeletal: Circulation, motion, and sensation intact. Range of motion: intact in all extremities. 20:30 Reassessment: Patient appears in no apparent distress at this time. Patient and/or jd3 family updated on plan of care and expected duration. Pain level reassessed. Patient is alert, oriented x 3, equal unlabored respirations, skin warm/dry/pink. Patient states feeling better. 21:39 Reassessment: Patient appears in no apparent distress at this time. No changes from jd3 previously documented assessment. Patient and/or family updated on plan of care and expected duration. Pain level reassessed. Patient is alert, oriented x 3, equal unlabored respirations, skin warm/dry/pink. awaiting IV medication infusion before discharge. 22:40 Reassessment: Patient appears in no apparent distress at this time. Patient and/or jd3 family updated on plan of care and expected duration. Pain level reassessed. Patient is alert, oriented x 3, equal unlabored respirations, skin warm/dry/pink. reported understanding of discharge instructions. even and steady gait upon discharge. Patient states feeling better. Vital Signs: 18:23 BP 161 / 101; Pulse 105; Resp 24 S; Pulse Ox 96% on R/A; Weight 77.11 kg; Height 5 ft. iw 3 in. (160.02 cm); 19:58 BP 181 / 104; Pulse 105; Resp 19; Pulse Ox 97% on R/A; jd3 21:41 BP 175 / 96; Pulse 95; Resp 20 S; Pulse Ox 96% on R/A; jd3 22:42 BP 173 / 97; Pulse 93; Resp 19 S; Pulse Ox 96% on R/A; Pain 0/10; jd3 18:23 Body Mass Index 30.11 (77.11 kg, 160.02 cm) iw ED Course: 18:13 Patient arrived in ED. as 18:15 Ike Hicks MD is Attending Physician. cristo 18:23 Triage completed. iw 18:28 Sandra Tiraod, RN is Primary Nurse. ph 18:30 Patient has correct armband on for positive identification. Bed in low position. Call ph light in reach. Side rails up X 1. Pulse ox on. Sitter at bedside. Door closed. Noise minimized. Warm blanket given. 18:31 Arm band placed on Patient placed in an exam room, on a stretcher. ph 19:25 Initial lab(s) drawn, by me, sent to lab. First set of blood cultures drawn by me. lt1 19:30 Inserted saline lock: 20 gauge in right antecubital area, using aseptic technique. lt1 19:43 Second set of blood cultures drawn by me. lt1 19:54 XRAY Chest (1 view) In Process Unspecified. EDMS 20:09 Ike Samaniego PA is PHCP. cp 21:12 Miles Srivastava MD is Referral Physician. cp 22:41 No provider procedures requiring assistance completed. IV discontinued, intact, jd3 bleeding controlled, No redness/swelling at site. Pressure dressing applied. Administered Medications: 18:19 Drug: Albuterol - atroVENT (3:1) (2.5 mg - 0.5 mg) 3 ml Route: Nebulizer; tw2 18:56 Follow up: Response: No adverse reaction ph 19:33 Drug: NS 0.9% 1000 ml Route: IV; Rate: 1 bolus; Site: right antecubital; jd3 20:30 Follow up: Response: No adverse reaction; IV Status: Completed infusion; IV Intake: jd3 1000ml 19:34 Drug: SOLU-Medrol 125 mg Route: IVP; Site: right antecubital; jd3 20:30 Follow up: Response: No adverse reaction jd3 19:34 Drug: predniSONE 40 mg Route: PO; jd3 20:30 Follow up: Response: No adverse reaction jd3 19:34 Drug: Xopenex 2.5 mg Route: Inhalation; jd3 20:30 Follow up: Response: No adverse reaction jd3 19:50 Drug: Rocephin 1 grams Route: IV; Rate: per protocol; Site: right antecubital; jd3 19:54 Follow up: Response: No adverse reaction; IV Status: Completed infusion; IV Intake: 55prox3 19:54 Drug: Zithromax 500 mg Route: IVPB; Infused Over: 1 hrs; Site: right antecubital; jd3 20:50 Follow up: Response: No adverse reaction; IV Status: Completed infusion; IV Intake: jd3 250ml 21:37 Drug: NS 0.9% 1000 ml Route: IV; Rate: 1 bolus; Site: right antecubital; jd3 22:46 Follow up: Response: No adverse reaction; IV Status: Completed infusion; IV Intake: jd3 1000ml 21:37 Drug: cloNIDine 0.1 mg Route: PO; jd3 22:46 Follow up: Response: No adverse reaction jd3 21:37 Drug: Lisinopril 20 mg Route: PO; jd3 22:46 Follow up: Response: No adverse reaction jd3 21:57 Drug: Tylenol 1000 mg Route: PO; jd3 22:45 Follow up: Response: No adverse reaction jd3 Intake: 19:54 IV: 10ml; Total: 10ml. jd3 20:30 IV: 1000ml; Total: 1010ml. jd3 20:50 IV: 250ml; Total: 1260ml. jd3 22:46 IV: 1000ml; Total: 2260ml. jd3 Outcome: 21:12 Discharge ordered by . cp 22:41 Discharged to home ambulatory. jd3 22:41 Condition: stable 22:41 Discharge instructions given to patient, family, Instructed on discharge instructions, follow up and referral plans. medication usage, Demonstrated understanding of instructions, follow-up care, medications, Prescriptions given X 6 22:47 Patient left the ED. jd3 Signatures: Dispatcher [employer] EDMS Ike Hicks MD MD cha Martinez, Amelia as Williams, Irene, RN RN iw Sandra Tirado RN RN ph Page, Corey, PA PA cp Wise, Tara, RN RN tw2 Joshua De Santiago RN RN jd3 Tran, Leah lt1 Corrections: (The following items were deleted from the chart) 18:25 18:23 BP 161 / 117; Pulse 105bpm; Resp 24bpm; Spontaneous; Pulse Ox 96% RA; 77.11 kg; iw Height 5 ft. 3 in.; BMI: 30.1; iw 21:39 20:30 Reassessment: Patient appears in no apparent distress at this time. Patient jd3 and/or family updated on plan of care and expected duration. Pain level reassessed. Patient is alert, oriented x 3, equal unlabored respirations, skin warm/dry/pink. jd3 21:40 21:39 Reassessment: Patient appears in no apparent distress at this time. No changes jd3 from previously documented assessment. Patient and/or family updated on plan of care and expected duration. Pain level reassessed. Patient is alert, oriented x 3, equal unlabored respirations, skin warm/dry/pink. jd3
[2019-02-26] MEDS ORDERED: LISINOPRIL 20 MG TAB ONE (21:34)
[2019-02-26] MEDS ORDERED: cloNIDine HCl 0.1 MG TAB ONE (21:34)
[2019-02-26] MEDS ORDERED: ACETAMINOPHEN 500 MG TAB ONE (21:56)
[2019-02-27 01:15] VITALS: O2SAT 96
[2019-02-27 01:17] VITALS: BP 173/97
--- NOTE | 2019-02-27 07:45 | EKG ---
Test Date: 2019-02-26 Test Time: 19:40:23 Flowers Salesperson: AYANA MEASUREMENT RESULTS: Intervals: Rate: 88 RI: 152 QRSD: 76 QT: 374 QTc: 452 [place]: P: 71 RI: 152 QRS: 67 T: 63 INTERPRETIVE STATEMENTS: Normal sinus rhythm Normal ECG Compared to ECG 02/14/2018 09:44:31 No significant changes Electronically Signed On 02-27-19 07:45:15 CDT by Sandro Voss
== END 2019-02-26 22:47 | disposition home or self-care (01) ==
LOC: ER 18:08
DX: J06.9 Acute upper respiratory infection, unspecified (principal); I11.9 Hypertensive heart disease without heart failure; J45.909 Unspecified asthma, uncomplicated; Z72.0 Tobacco use; Z71.6 Tobacco abuse counseling
CPT/HCPCS: 36415; 71045; 80048; 80076; 83735; 83880; 84484; 85025; 85610; 87040; 93005; 94640; 96361; 96365; 96375; 99285; J0456; J0696; J2930; J7030; J7512

== ENCOUNTER 2019-04-21 20:26 | Emergency (ER) | payer SELFPAY ==
[2019-04-21 21:26] LABS: Urine Bacteria 20-50 /HPF (<20); Urine Culture Reflex Order REFLEXED; Urine Mucus 1+ /HPF (NONE SEEN); Urine RBC <5 /HPF (NONE SEEN)
[2019-04-21 21:27] LABS: Urine Blood NEGATIVE (NEG); Urine Glucose NEGATIVE (NEG); Urine Protein NEGATIVE (NEG)
[2019-04-21] MEDS ORDERED: CEFTRIAXONE/SWI 1gm 1 GM/10 ML SYR ONE (21:47)
[2019-04-21] MEDS ORDERED: KETOROLAC 30 MG/ML INJ ONE (21:47)
[2019-04-21 22:17] LABS: Albumin 3.7 g/dL (3.4-5.0); Bilirubin Direct 0.1 mg/dL (0-0.2); Bilirubin Total 0.5 mg/dL (0.2-1.0); Protein, Total 6.8 g/dL (6.4-8.2)
[2019-04-21 22:18] LABS: Absolute Lymphocytes (CBC) 3.3 K/uL (0.7-4.9); Basophils % 0.7 % (0-1.3); Hematocrit 43.4 % (36.0-45.0); Lymphocytes % 22.3 % (15.3-44.8); MPV 9.2 fL (7.6-11.3); RBC Red Blood Cell Count 4.83 M/uL (3.86-4.86)
--- NOTE | 2019-04-21 23:30 | ER ---
Nurse's Notes [facility] Name: Adelso Denise Age: 39 yrs Sex: Female : 1980 Arrival Date: 04/21/2019 Time: 20:28 Bed 26 Private MD: Diagnosis: Urinary tract infection, site not specified Presentation: 04/21 20:35 Presenting complaint: Patient states: "I started to have left lower back pain earlier cc3 today". Transition of care: patient was not received from another setting of care. Onset of symptoms was April 21, 2019. Risk Assessment: Do you want to hurt yourself or someone else? Patient reports no desire to harm self or others. Initial Sepsis Screen: Does the patient meet any 2 criteria? No. Patient's initial sepsis screen is negative. Does the patient have a suspected source of infection? No. Patient's initial sepsis screen is negative. Care prior to arrival: Medication(s) given: Aleve taken at 1700H. 20:35 Method Of Arrival: Ambulatory cc3 20:35 Acuity: ALBERTO 3 cc3 Triage Assessment: 20:35 General: Appears in no apparent distress. uncomfortable, Behavior is calm, cooperative, cc3 appropriate for age. Pain: Complains of pain in left lower back. Musculoskeletal: Circulation, motion, and sensation intact. Range of motion: intact in all extremities. 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 - Social history:: Smoking status: Patient uses tobacco products, smokes one-half pack cigarettes per day, Patient uses weeds; patient said she smoked weeds today. - Ebola Screening: : No symptoms or risks identified at this time. Screenin:15 Abuse screen: Denies threats or abuse. Denies injuries from another. Nutritional mg2 screening: No deficits noted. Tuberculosis screening: No symptoms or risk factors identified. Fall Risk IV access (20 points). Assessment: 22:00 Pain: Complains of pain in back Pain does not radiate. Pain currently is 8 out of 10 on mg2 a pain scale. Neuro: Level of Consciousness is awake, alert, obeys commands, Oriented to person, place, time, situation. Cardiovascular: Capillary refill < 3 seconds Patient's skin is warm and dry. Respiratory: Airway is patent Respiratory effort is even, unlabored, Respiratory pattern is regular, symmetrical. GI: No signs and/or symptoms were reported involving the gastrointestinal system. GI: No signs and/or symptoms were reported involving the gastrointestinal system. Reports nausea. : Reports pain flank(s), in lower back. EENT: No signs and/or symptoms were reported regarding the EENT system. Derm: Skin is intact, is healthy with good turgor, Skin is pink, warm \\T\\ dry. normal. Musculoskeletal: Circulation, motion, and sensation intact. Capillary refill < 3 seconds, Reports pain in back. 22:15 General: Appears in no apparent distress. comfortable, Behavior is calm, cooperative. mg2 Vital Signs: 20:35 BP 181 / 95; Pulse 81; Resp 19 S; Temp 98.3(O); Pulse Ox 100% on R/A; Weight 77.11 kg cc3 (R); Height 5 ft. 3 in. (160.02 cm) (R); Pain 8/10; 22:14 BP 186 / 86; Pulse 65; Resp 18; Pulse Ox 98% on R/A; mg2 22:32 BP 176 / 83; Pulse 69; Resp 18; Pulse Ox 100% on R/A; mg2 23:35 BP 175 / 74; Pulse 70; Resp 18; Temp 98; Pulse Ox 100% on R/A; Pain 0/10; mg2 20:35 Body Mass Index 30.11 (77.11 kg, 160.02 cm) cc3 ED Course: 20:28 Patient arrived in ED. ag3 20:32 Lionel Wheeler MD is Attending Physician. tw4 21:03 Triage completed. cc3 21:33 Yosvany Wang RN is Primary Nurse. mg2 22:00 Inserted saline lock: 20 gauge in right antecubital area, using aseptic technique. mg2 Blood collected. 22:15 Patient has correct armband on for positive identification. Pulse ox on. NIBP on. Door mg2 closed. Warm blanket given. 22:15 No provider procedures requiring assistance completed. mg2 22:18 Arm band placed on. mg2 22:22 CT Stone Protocol In Process Unspecified. EDMS 23:35 IV discontinued, intact, bleeding controlled, No redness/swelling at site. Pressure mg2 dressing applied. Administered Medications: 22:00 Drug: Rocephin 1 grams Route: IV; Rate: calculated rate; Site: right antecubital; mg2 23:04 Follow up: Response: No adverse reaction; IV Status: Completed infusion mg2 22:00 Drug: TORadol 30 mg Route: IVP; Site: right antecubital; mg2 23:04 Follow up: Response: No adverse reaction; Marked relief of symptoms mg2 Outcome: 23:29 Discharge ordered by . [email or web address] 23:36 Discharged to home ambulatory, with family. mg2 23:36 Condition: stable 23:36 Discharge instructions given to patient, family, Instructed on discharge instructions, follow up and referral plans. medication usage, Demonstrated understanding of instructions, follow-up care, medications, Prescriptions given X 2. 23:36 Patient left the ED. mg2 Signatures: Dispatcher [employer] EDMS Lionel Wheeler MD MD tw4 Yosvany Wang, JACK RN mg2 Mimi English cc3 Lorena Amos ag3 Corrections: (The following items were deleted from the chart) 21:07 20:35 BP 181 / 95; Pulse 81bpm; Resp 19bpm; Spontaneous; Pulse Ox 100% RA; Temp 98.3F cc3 Oral; 77.11 kg Reported; Height 5 ft. 3 in. Reported; BMI: 30.1; cc3
--- NOTE | 2019-04-21 23:30 | EDPHYS ---
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 - Social history:: Smoking status: Patient uses tobacco products, smokes one-half pack cigarettes per day, Patient uses weeds; patient said she smoked weeds today. - Ebola Screening: : No symptoms or risks identified at this time. Vital Signs: 20:35 BP 181 / 95; Pulse 81; Resp 19 S; Temp 98.3(O); Pulse Ox 100% on R/A; Weight 77.11 kg cc3 (R); Height 5 ft. 3 in. (160.02 cm) (R); Pain 8/10; 22:14 BP 186 / 86; Pulse 65; Resp 18; Pulse Ox 98% on R/A; mg2 22:32 BP 176 / 83; Pulse 69; Resp 18; Pulse Ox 100% on R/A; mg2 23:35 BP 175 / 74; Pulse 70; Resp 18; Temp 98; Pulse Ox 100% on R/A; Pain 0/10; mg2 20:35 Body Mass Index 30.11 (77.11 kg, 160.02 cm) cc3 MDM: 20:32 Patient medically screened. tw4 04/21 20:31 Order name: Urine Microscopic Only; Complete Time: 21:40 snw 04/21 21:19 Order name: Urine Dipstick--Ancillary (enter results); Complete Time: 21:40 cm6 04/21 21:19 Order name: Urine --Ancillary (enter results); Complete Time: 21:40 cm6 04/21 21:28 Order name: Urine Culture EDMS 04/21 21:40 Order name: Basic Metabolic Panel tw4 04/21 21:40 Order name: CBC with Diff tw4 04/21 20:31 Order name: Urine Test (obtain specimen); Complete Time: 21:29 snw 04/21 20:31 Order name: Urine Dipstick-Ancillary (obtain specimen); Complete Time: 21:29 snw 04/21 21:40 Order name: Creatinine for Radiology tw4 04/21 21:40 Order name: Hepatic Function tw4 04/21 21:40 Order name: Lipase tw4 04/21 21:55 Order name: CT Stone Protocol tw4 04/21 21:40 Order name: IV Saline Lock; Complete Time: 22:14 tw4 04/21 21:40 Order name: Labs collected and sent; Complete Time: 22:14 tw4 Administered Medications: 22:00 Drug: Rocephin 1 grams Route: IV; Rate: calculated rate; Site: right antecubital; mg2 23:04 Follow up: Response: No adverse reaction; IV Status: Completed infusion mg2 22:00 Drug: TORadol 30 mg Route: IVP; Site: right antecubital; mg2 23:04 Follow up: Response: No adverse reaction; Marked relief of symptoms mg2 Disposition: 04/21/19 23:29 Discharged to Home. Impression: Urinary tract infection, site not specified. - Condition is Stable. - Discharge Instructions: Urinary Tract Infection, Adult. - Prescriptions for Macrobid 100 mg Oral Capsule - take 1 capsule by ORAL route every 12 hours for 10 days; 20 capsule. Ibuprofen 800 mg Oral Tablet - take 1 tablet by ORAL route every 8 hours As needed take with food; 30 tablet. - Medication Reconciliation Form, Thank You Letter, Antibiotic Education, Prescription Opioid Use form. - Follow up: Private Physician; When: Upon discharge from the Emergency Department; Reason: Recheck today's complaints, Continuance of care. - Problem is new. - Symptoms have improved. Signatures: Dispatcher [employer] EDMS Laura Duvall, ELIE-C SUPERINTENDENT PIER-Csnw Lionel Wheeler MD MD tw4 Yosvany Wang RN RN mg2 Mimi English cc3 Corrections: (The following items were deleted from the chart) 23:36 23:29 04/21/2019 23:29 Discharged to Home. Impression: Urinary tract infection, site mg2 not specified. Condition is Stable. Forms are Medication Reconciliation Form, Thank You Letter, Antibiotic Education, Prescription Opioid Use. Follow up: Private Physician; When: Upon discharge from the Emergency Department; Reason: Recheck today's complaints, Continuance of care. Problem is new. Symptoms have improved. tw4
[2019-04-21 23:49] VITALS: BP 175/74; TEMP 98; O2SAT 100
--- NOTE | 2019-04-22 11:26 | RAD REPORT ---
EXAM DESCRIPTION: CT - Stone Protocol - 04/22/2019 4:15 am CLINICAL HISTORY: Left flank pain. Assess for obstructive uropathy. TECHNIQUE: CT scan of the abdomen and pelvis was performed without intravenous contrast. Stone protocol was utilized. 3.0 mm axial images were obtained along with coronal and sagittal reform atted images. DOSE OPTIMIZATION: This facility uses dose optimization techniques as appropriate to perform exams, including at least one of the following techniques: 1. Automated exposure control. 2. Adjustment of the mA and/or kV according to patient size (this includes techniques or standardized protocols for targeted exams where dose is matched to the indication/reason for exam, i.e. extremiti es or head). 3. Use of iterative reconstructive technique. COMPARISON: 03/14/2013. FINDINGS: Lung Bases: Normal. Liver: Normal. Spleen: Normal. Pancreas: Normal. Gallbladder: Normal. Adrenal Glands: Normal. Right Kidney: There is a nonobstructing stone in the lower pole the right kidney measuring 1.2 x 0.9 cm. Left Kidney: There are 5 small nonobstructing medullary stones each measuring 0.2 cm. Right Ureter: Normal. Left Ureter: Normal. Urinary Bladder: Normal. Retroperitoneal Structures: Normal. Bowel Survey: There is increased stool within the ascending and transverse colon. Uterus and Adnexa: Normal. Peritoneal Cavity: Normal. Mesenteric Structures: Normal. Abdominal Wall: No hernia. Bony Structures: No suspicious lesions. IMPRESSION: 1. Bilateral nephrolithiasis. 2. No evidence of obstructive uropathy. 3. Increased stool within the ascending and transverse colon. Electronically signed by: Chivo Olson MD 04/21/2019 10:57 PM CDT Due to temporary technical issues with the PACS/Fluency reporting system, reports are being signed by the in house radiologist as a courtesy to ensure prompt reporting. The interpreting radiologist is f ully responsible for the content of the report.
== END 2019-04-21 23:36 | disposition home or self-care (01) ==
LOC: ER 20:26
DX: N39.0 Urinary tract infection, site not specified (principal); I10 Essential (primary) hypertension; J45.909 Unspecified asthma, uncomplicated
CPT/HCPCS: 36415; 74176; 76377; 80048; 80076; 81003; 81015; 81025; 83690; 85025; 87077; 87086; 87088; 87186; 96365; 96375; 99284; J0696

== ENCOUNTER 2019-05-18 15:04 | Emergency (ER) | payer SELFPAY ==
--- OUTSIDE RECORDS SUMMARY | 2019-05-18 15:06 | XMS REPORT ---
:1980 [facility] Address [address] [place] [address] Dr. Ken [address] [place] [id number] Care Team Providers Name Role Phone Unavailable Unavailable Unavailable Problems This patient has no known problems. Allergies, Adverse Reactions, Alerts This patient has no known allergies or adverse reactions. Medications This patient has no known medications.
--- NOTE | 2019-05-18 16:01 | RAD REPORT ---
EXAM DESCRIPTION: CT - Head Brain Wo Cont - 05/18/2019 3:44 pm CLINICAL HISTORY: Hypertension, headache COMPARISON: CT head September 2013 TECHNIQUE: Axial 5 mm thick images of the head were obtained without IV contrast. All CT scans are performed using dose optimization technique as appropriate and may include automated exposure control or mA/KV adjustment according to patient size. FINDINGS: No intracranial hemorrhage, mass, edema or shift of mid-line structures. No acute infarcti on changes seen. No abnormal extra-axial fluid collections. Ventricles are normal. Mastoid air cells are clear. Mucosal thickening and air-fluid level in the left maxillary sinus. No acute bony findings. IMPRESSION: No intracranial abnormality. Left maxillary sinusitis
[2019-05-18] MEDS ORDERED: DIPHENHYDRAMINE 50 MG/ML VIAL ONE (16:02)
[2019-05-18] MEDS ORDERED: METOCLOPRAMIDE 10 MG/2mL INJ ONE (16:02)
[2019-05-18] MEDS ORDERED: dexAMETHasone 10 MG/ML VIAL ONE (16:02)
--- NOTE | 2019-05-18 16:36 | ER ---
Nurse's Notes [facility] Name: Adelso Denise Age: 39 yrs Sex: Female : 1980 Arrival Date: 05/18/2019 Time: 15:06 Bed 14 Private MD: Diagnosis: Migraine;Essential (primary) hypertension Presentation: 05/18 15:18 Transition of care: patient was not received from another setting of care. Onset of la1 symptoms was May 18, 2019. Risk Assessment: Do you want to hurt yourself or someone else? Patient reports no desire to harm self or others. Initial Sepsis Screen: Does the patient meet any 2 criteria? No. Patient's initial sepsis screen is negative. Does the patient have a suspected source of infection? No. Patient's initial sepsis screen is negative. Care prior to arrival: None. 15:18 Method Of Arrival: Ambulatory la1 15:18 Acuity: ALBERTO 3 la1 15:20 Presenting complaint: Patient states: I have had a few nose bleeds today and the vision la1 in my right eye is a little more blurry than normal. Triage Assessment: 15:30 Pain: Pain currently is 8 out of 10 on a pain scale. Pain began today Also complains of rb1 photophobia. 15:30 Headache History: The patient has had previous headaches. rb1 Historical: - Allergies: 15:19 No Known Allergies; la1 - Home Meds: 15:30 lisinopril Oral [Active]; ProAir HFA inhalation [Active]; rb1 - PMHx: 15:19 Asthma; Hypertension; la1 - Immunization history:: Adult Immunizations up to date. - Social history:: Smoking status: Patient uses tobacco products, smokes one-half pack cigarettes per day. - Ebola Screening: : No symptoms or risks identified at this time. Screenin:30 Abuse screen: Denies threats or abuse. Nutritional screening: No deficits noted. rb1 Tuberculosis screening: No symptoms or risk factors identified. Fall Risk None identified. Assessment: 15:30 General: Appears uncomfortable, Behavior is calm, cooperative, Denies fever. Pain: rb1 Complains of pain in head Pain currently is 8 out of 10 on a pain scale. Pain began today. Neuro: Level of Consciousness is awake, alert, obeys commands, Oriented to person, place, time, situation. Neuro: Reports blurred vision in right eye headache in entire. Cardiovascular: Capillary refill < 3 seconds is brisk in bilateral fingers. Respiratory: Airway is patent Respiratory effort is even, unlabored, Respiratory pattern is regular, symmetrical. GI: No signs and/or symptoms were reported involving the gastrointestinal system. : No signs and/or symptoms were reported regarding the genitourinary system. Derm: Skin is pink, warm \T\ dry. Musculoskeletal: Range of motion: intact in all extremities. 16:30 Reassessment: Patient appears in no apparent distress at this time. Patient and/or rb1 family updated on plan of care and expected duration. Pain level reassessed. Patient is alert, oriented x 3, equal unlabored respirations, skin warm/dry/pink. Patient states feeling better. Vital Signs: 15:19 BP 159 / 93; Pulse 74; Resp 16; Temp 97.1; Pulse Ox 100% on R/A; Weight 77.11 kg; la1 Height 5 ft. 3 in. (160.02 cm); 16:12 BP 163 / 88; Pulse 66; Resp 18; Pulse Ox 100% ; rb1 17:02 BP 166 / 83; Pulse 65; Resp 17; Pulse Ox 100% on R/A; Pain 4/10; rb1 15:19 Body Mass Index 30.11 (77.11 kg, 160.02 cm) la1 ED Course: 15:06 Patient arrived in ED. mr 15:18 Triage completed. la1 15:18 Arm band placed on right wrist. la1 15:27 [facility]rique Ross [facility]. jr8 15:27 Radu Allen MD is Attending Physician. jr8 15:30 Patient has correct armband on for positive identification. Bed in low position. Call rb1 light in reach. Side rails up X 1. Pulse ox on. NIBP on. Warm blanket given. 15:46 CT Head Brain wo Cont In Process Unspecified. EDMS 15:59 Judit Brown, JACK is Primary Nurse. rb1 16:15 Inserted saline lock: 22 gauge in right antecubital area, using aseptic technique. rb1 16:35 Osman Steele MD is Referral Physician. jr8 17:02 No provider procedures requiring assistance completed. IV discontinued, intact, rb1 bleeding controlled, No redness/swelling at site. Pressure dressing applied. Administered Medications: 16:20 Drug: Reglan 10 mg Route: IVP; Site: right antecubital; rb1 16:35 Follow up: Response: No adverse reaction rb1 16:20 Drug: Benadryl 25 mg Route: IVP; Site: right antecubital; rb1 16:35 Follow up: Response: No adverse reaction; Pain is decreased rb1 16:20 Drug: Decadron - Dexamethasone 10 mg Route: IVP; Site: right antecubital; rb1 16:35 Follow up: Response: No adverse reaction; Marked relief of symptoms rb1 Outcome: 16:35 Discharge ordered by . [email or web address] 17:02 Patient left the ED. rb1 17:02 Discharged to home ambulatory, with family. rb1 17:02 Condition: stable 17:02 Discharge instructions given to patient, Instructed on discharge instructions, follow up and referral plans. medication usage, Demonstrated understanding of instructions, follow-up care, medications, Prescriptions given X 1. Signatures: Dispatcher [employer] Marilyn Solis Josh, PA PA jr8 Robbie Pugh RN RN la1 Judit Brown, RN RN rb1
--- NOTE | 2019-05-18 16:36 | EDPHYS ---
Physician Documentation [facility] Name: Adelso Denise Age: 39 yrs Sex: Female : 1980 Arrival Date: 05/18/2019 Time: 15:06 Bed 14 Private MD: ED Physician Radu Allen HPI: 05/18 16:27 This 39 yrs old Female presents to ER via Ambulatory with complaints of High jr8 Blood Pressure, Headache, Vision Problem, Nose Bleed. 16:27 Onset: The symptoms/episode began/occurred acutely, today. Modifying factors: The jr8 symptoms are aggravated by activity. Associated signs and symptoms: The patient has no apparent associated signs or symptoms. It is unknown whether or not the patient has had similar symptoms in the past. The patient has not recently seen a physician. Patient stated that she started to develop headache today and had nose bleed. Stated that this usually happens when her BP elevates. Stated that she is out of her medicine at this time. Came to ED today because she started to have blurred vision on right side which is new . Historical: - Allergies: 15:19 No Known Allergies; la1 - Home Meds: 15:30 lisinopril Oral [Active]; ProAir HFA inhalation [Active]; rb1 - PMHx: 15:19 Asthma; Hypertension; la1 - Immunization history:: Adult Immunizations up to date. - Social history:: Smoking status: Patient uses tobacco products, smokes one-half pack cigarettes per day. - Ebola Screening: : No symptoms or risks identified at this time. ROS: 16:27 ENT: Negative for injury, pain, and discharge, Neck: Negative for injury, pain, and jr8 swelling, Cardiovascular: Negative for chest pain, palpitations, and edema, Respiratory: Negative for shortness of breath, cough, wheezing, and pleuritic chest pain, Abdomen/GI: Negative for abdominal pain, nausea, vomiting, diarrhea, and constipation, Back: Negative for injury and pain, MS/Extremity: Negative for injury and deformity, Skin: Negative for injury, rash, and discoloration. 16:27 Eyes: Positive for blurry vision, of the right eye. 16:27 Neuro: Positive for headache, visual changes, Negative for altered mental status, dizziness, gait disturbance, hearing loss, loss of consciousness, numbness, seizure activity, speech changes, syncope, near syncope, tingling, tinnitus, tremor, weakness. Exam: 16:27 Eyes: Pupils equal round and reactive to light, extra-ocular motions intact. Lids and jr8 lashes normal. Conjunctiva and sclera are non-icteric and not injected. Cornea within normal limits. Periorbital areas with no swelling, redness, or edema. ENT: Nares patent. No nasal discharge, no septal abnormalities noted. Tympanic membranes are normal and external auditory canals are clear. Oropharynx with no redness, swelling, or masses, exudates, or evidence of obstruction, uvula midline. Mucous membranes moist. Neck: Trachea midline, no thyromegaly or masses palpated, and no cervical lymphadenopathy. Supple, full range of motion without nuchal rigidity, or vertebral point tenderness. No Meningismus. Cardiovascular: Regular rate and rhythm with a normal S1 and S2. No gallops, murmurs, or rubs. Normal PMI, no JVD. No pulse deficits. Respiratory: Lungs have equal breath sounds bilaterally, clear to auscultation and percussion. No rales, rhonchi or wheezes noted. No increased work of breathing, no retractions or nasal flaring. Abdomen/GI: Soft, non-tender, with normal bowel sounds. No distension or tympany. No guarding or rebound. No evidence of tenderness throughout. Back: No spinal tenderness. No costovertebral tenderness. Full range of motion. Skin: Warm, dry with normal turgor. Normal color with no rashes, no lesions, and no evidence of cellulitis. MS/ Extremity: Pulses equal, no cyanosis. Neurovascular intact. Full, normal range of motion. Neuro: Awake and alert, GCS 15, oriented to person, place, time, and situation. Cranial nerves II-XII grossly intact. Motor strength 5/5 in all extremities. Sensory grossly intact. Cerebellar exam normal. Normal gait. Vital Signs: 15:19 BP 159 / 93; Pulse 74; Resp 16; Temp 97.1; Pulse Ox 100% on R/A; Weight 77.11 kg; la1 Height 5 ft. 3 in. (160.02 cm); 16:12 BP 163 / 88; Pulse 66; Resp 18; Pulse Ox 100% ; rb1 17:02 BP 166 / 83; Pulse 65; Resp 17; Pulse Ox 100% on R/A; Pain 4/10; rb1 15:19 Body Mass Index 30.11 (77.11 kg, 160.02 cm) la1 MDM: 15:28 Patient medically screened. jr8 16:27 Data reviewed: vital signs, nurses notes, radiologic studies, CT scan. Data jr8 interpreted: Pulse oximetry: on room air is 100 %. Interpretation: normal. Counseling: I had a detailed discussion with the patient and/or guardian regarding: the historical points, exam findings, and any diagnostic results supporting the discharge/admit diagnosis, radiology results, the need for outpatient follow up, a family practitioner, a neurologist, to return to the emergency department if symptoms worsen or persist or if there are any questions or concerns that arise at home. Response to treatment: the patient's symptoms have markedly improved after treatment. 05/18 15:28 Order name: CT Head Brain wo Cont; Complete Time: 16:20 jr8 05/18 15:40 Order name: IV; Complete Time: 16:31 jr8 Administered Medications: 16:20 Drug: Reglan 10 mg Route: IVP; Site: right antecubital; rb1 16:35 Follow up: Response: No adverse reaction rb1 16:20 Drug: Benadryl 25 mg Route: IVP; Site: right antecubital; rb1 16:35 Follow up: Response: No adverse reaction; Pain is decreased rb1 16:20 Drug: Decadron - Dexamethasone 10 mg Route: IVP; Site: right antecubital; rb1 16:35 Follow up: Response: No adverse reaction; Marked relief of symptoms rb1 Disposition: 17:52 Co-signature as Attending Physician, Radu Allen MD Did not see or evaluate patient. ps1 Chart signed for administrative purposes. Not an endorsement of care. . Disposition: 05/18/19 16:35 Discharged to Home. Impression: Migraine, Essential (primary) hypertension. - Condition is Stable. - Discharge Instructions: Migraine Headache, Hypertension. - Prescriptions for Fioricet 50- 325-40 mg Oral tablet - take 2 tablet by ORAL route every 4 hours as needed not to exceed 6 tablets per 24hrs; 20 tablet. - Medication Reconciliation Form, Thank You Letter, Antibiotic Education, Prescription Opioid Use, Work release form form. - Follow up: Private Physician; When: 2 - 3 days; Reason: Recheck today's complaints, Continuance of care, Re-evaluation by your physician. Follow up: Osman Steele MD; When: 5 - 6 days; Reason: Recheck today's complaints, Continuance of care, Re-evaluation by your physician. - Problem is new. - Symptoms have improved. Signatures: Dispatcher [employer] EDMS Enrique Ross PA PA jr8 Robbie Pugh RN RN la1 Judit Brown, RN RN rb1 Radu Allen MD MD ps1 Corrections: (The following items were deleted from the chart) 17:02 16:35 05/18/2019 16:35 Discharged to Home. Impression: Migraine; Essential (primary) rb1 hypertension. Condition is Stable. Forms are Medication Reconciliation Form, Thank You Letter, Antibiotic Education, Prescription Opioid Use. Follow up: Private Physician; When: 2 - 3 days; Reason: Recheck today's complaints, Continuance of care, Re-evaluation by your physician. Follow up: Osman Steele; When: 5 - 6 days; Reason: Recheck today's complaints, Continuance of care, Re-evaluation by your physician. Problem is new. Symptoms have improved. jr8
[2019-05-18 17:07] VITALS: TEMP 97.1; O2SAT 100
[2019-05-18 17:08] VITALS: BP 166/83
== END 2019-05-18 17:02 | disposition home or self-care (01) ==
LOC: ER 15:04
DX: G43.909 Migraine, unspecified, not intractable, without status migrainosus (principal); I10 Essential (primary) hypertension; J45.909 Unspecified asthma, uncomplicated
CPT/HCPCS: 70450; 96374; 96375; 99284; J1100; J1200; J2765

== ENCOUNTER 2020-07-21 13:15 | Emergency (ER) | payer SELFPAY ==
--- OUTSIDE RECORDS SUMMARY | 2020-07-21 13:30 | XMS REPORT | Continuity of Care Document ---
:1980 Author Organization [facility] t Address [address] [place] [address] Dr. Ken [address] [place] [id number] Care Team Providers Name Role Phone Unavailable Unavailable Unavailable Problems This patient has no known problems. Allergies, Adverse Reactions, Alerts This patient has no known allergies or adverse reactions. Medications This patient has no known medications. Procedures This patient has no known procedures. Results This patient has no known results.
--- NOTE | 2020-07-21 13:53 | RAD REPORT ---
EXAM DESCRIPTION: CT - Head Brain Wo Cont - 07/21/2020 1:44 pm CLINICAL HISTORY: PAIN Trauma, head injury, headache COMPARISON: Head Brain Wo Cont dated 05/18/2019; HEAD BRAIN W O CONTRAST dated 10/06/2013 TECHNIQUE: All CT scans are performed using dose optimization technique as appropriate and may inclu de automated exposure control or mA/KV adjustment according to patient size. FINDINGS: No intracranial hemorrhage, hydrocephalus or extra-axial fluid collection.No areas of brai n edema or evidence of midline shift. The paranasal sinuses and mastoids are clear. The calvarium is intact. Small left posterior scalp hem atoma. IMPRESSION: No acute intracranial abnormality.
--- NOTE | 2020-07-21 13:56 | EDPHYS ---
Physician Documentation [facility] Name: Adelso Denise Age: 40 yrs Sex: Female : 1980 Arrival Date: 07/21/2020 Time: 13:25 Bed 12 Private MD: ED Physician Hector Lunsford HPI: 07/21 14:10 This 40 yrs old Female presents to ER via Law Enforcement with complaints of kb fall, head injury. 14:10 The patient or guardian reports injury, pain. The complaints affect the right parietal kb area. Context of injury: The problem was sustained at snf, resulted from a fall, from a standing position. Onset: The symptoms/episode began/occurred just prior to arrival. Associated signs and symptoms: Loss of consciousness: This patient did not experience any loss of consciousness. Pertinent positives: patient admits to or smells of alcohol consumption, headache. Severity of symptoms: At their worst the symptoms were mild, in the emergency department the symptoms are unchanged. The patient has not experienced similar symptoms in the past. The patient has not recently seen a physician. Pt reports she was in the snf, slipped and fell hitting the back of her head. Denies LOC. Pt is in police custody and was brought here for a legal blood draw. Officer decided to have her evaluated for the head injury as well. . Historical: - Allergies: 13:47 No Known Allergies; ss - PMHx: 13:47 Asthma; Hypertension; ss - Immunization history:: Adult Immunizations up to date. - Social history:: Smoking status: Patient reports the use of cigarette tobacco products, smokes one-half pack cigarettes per day. ROS: 14:08 Constitutional: Negative for fever, chills, and weight loss, Cardiovascular: Negative kb for chest pain, palpitations, and edema, Respiratory: Negative for shortness of breath, cough, wheezing, and pleuritic chest pain, Abdomen/GI: Negative for abdominal pain, nausea, vomiting, diarrhea, and constipation, MS/Extremity: Negative for injury and deformity. 14:08 Skin: Positive for abrasion(s), of the scalp. 14:08 Neuro: Positive for headache, slurred speech. Exam: 14:08 Constitutional: This is a well developed, well nourished patient who is awake, alert, kb and in no acute distress. Chest/axilla: Normal chest wall appearance and motion. Nontender with no deformity. No lesions are appreciated. Cardiovascular: Regular rate and rhythm with a normal S1 and S2. No gallops, murmurs, or rubs. Normal PMI, no JVD. No pulse deficits. Respiratory: Lungs have equal breath sounds bilaterally, clear to auscultation and percussion. No rales, rhonchi or wheezes noted. No increased work of breathing, no retractions or nasal flaring. Abdomen/GI: Soft, non-tender, with normal bowel sounds. No distension or tympany. No guarding or rebound. No evidence of tenderness throughout. Skin: Warm, dry with normal turgor. Normal color with no rashes, no lesions, and no evidence of cellulitis. MS/ Extremity: Pulses equal, no cyanosis. Neurovascular intact. Full, normal range of motion. 14:08 Head/face: Noted is no obvious of injury or deformity except abrasion(s), that are mild, of the right side of the back of head. 14:08 Neuro: Orientation: is normal, Mentation: is normal, Memory: is normal, Cranial nerves: Speech is slowed, slurred. Vital Signs: 13:25 BP 159 / 92; Pulse 73; Resp 13; Temp 98.2(TE); Pulse Ox 99% on R/A; Weight 76.66 kg; ss Height 5 ft. 3 in. (160.02 cm); Pain 10/10; 13:25 Body Mass Index 29.94 (76.66 kg, 160.02 cm) Ceci Coma Score: 14:10 Eye Response: spontaneous(4). Verbal Response: oriented(5). Motor Response: obeys kb commands(6). Total: 15. 14:10 Eye Response: spontaneous(4). Verbal Response: oriented(5). Motor Response: obeys kb commands(6). Total: 15. MDM: 13:30 Patient medically screened. kb 14:10 Data reviewed: vital signs, nurses notes. Data interpreted: Pulse oximetry: on room air kb is 99 %. Interpretation: normal. Counseling: I had a detailed discussion with the patient and/or guardian regarding: the historical points, exam findings, and any diagnostic results supporting the discharge/admit diagnosis, radiology results, the need for outpatient follow up, a family practitioner, to return to the emergency department if symptoms worsen or persist or if there are any questions or concerns that arise at home. 07/21 13:33 Order name: CT Head Brain wo Cont; Complete Time: 13:54 kb Administered Medications: No medications were administered Disposition: 14:20 Co-signature as Attending Physician, Hector Lunsford MD I agree with the assessment and kdr plan of care. Disposition: 07/21/20 13:55 Discharged to Law Enforcement. Impression: Fall on same level from slipping, tripping and stumbling, Superficial injury of head, Abrasion of scalp. - Condition is Stable. - Discharge Instructions: Head Injury, Adult, [id number]. - Medication Reconciliation Form, Thank You Letter, Antibiotic Education, Prescription Opioid Use form. - Follow up: Emergency Department; When: As needed; Reason: Worsening of condition. Follow up: Private Physician; When: 2 - 3 days; Reason: Recheck today's complaints, Continuance of care, Re-evaluation by your physician. Signatures: Dispatcher [employer] EDVA Nicole Cramer, ELIE-C [employer]-Hector Wilson MD MD [facility] Nessa Patel RN RN ss Corrections: (The following items were deleted from the chart) 13:55 13:55 07/21/2020 13:55 Discharged to Home. Impression: Fall on same level from kb slipping, tripping and stumbling; Superficial injury of head; Abrasion of scalp. Condition is Stable. Forms are Medication Reconciliation Form, Thank You Letter, Antibiotic Education, Prescription Opioid Use. Follow up: Emergency Department; When: As needed; Reason: Worsening of condition. Follow up: Private Physician; When: 2 - 3 days; Reason: Recheck today's complaints, Continuance of care, Re-evaluation by your physician. kb 14:03 13:55 07/21/2020 13:55 Discharged to Law Enforcement. Impression: Fall on same level ss from slipping, tripping and stumbling; Superficial injury of head; Abrasion of scalp. Condition is Stable. Discharge Instructions: Head Injury, Adult, [id number]. Forms are Medication Reconciliation Form, Thank You Letter, Antibiotic Education, Prescription Opioid Use. Follow up: Emergency Department; When: As needed; Reason: Worsening of condition. Follow up: Private Physician; When: 2 - 3 days; Reason: Recheck today's complaints, Continuance of care, Re-evaluation by your physician. kb 14:14 14:10 Pt reports she was in the snf, slipped and fell hitting the back of her head. kb Denies LOC. Pt is in police custody and was brought here for a legal blood draw. Officer decided to have her evaluated for the head injury as well. . kb
--- NOTE | 2020-07-21 13:56 | ER ---
Nurse's Notes [facility] Name: Adelso Denise Age: 40 yrs Sex: Female : 1980 Arrival Date: 07/21/2020 Time: 13:25 Bed 12 Private MD: Diagnosis: Fall on same level from slipping, tripping and stumbling;Superficial injury of head;Abrasion of scalp Presentation: 07/21 13:25 Chief complaint: Pt reports that while she was in senior care she fell backwards and hit her ss head on the floor. Denies LOC. Pt is drowsy during triage. Officer reports that patient was this way prior to falling. Small abrasion noted to top of head. Coronavirus screen: Client denies travel out of the [place] in the last 14 days. Ebola Screen: Patient denies exposure to infectious person. Patient denies travel to an Ebola-affected area in the 21 days before illness onset. Initial Sepsis Screen: Does the patient meet any 2 criteria? No. Patient's initial sepsis screen is negative. Does the patient have a suspected source of infection? No. Patient's initial sepsis screen is negative. Risk Assessment: Do you want to hurt yourself or someone else? Patient reports no desire to harm self or others. Onset of symptoms was July 21, 2020. 13:25 Method Of Arrival: Law Enforcement: Nicholas JERNIGAN 13:25 Acuity: ALBERTO 4 ss Historical: - Allergies: 13:47 No Known Allergies; ss - PMHx: 13:47 Asthma; Hypertension; ss - Immunization history:: Adult Immunizations up to date. - Social history:: Smoking status: Patient reports the use of cigarette tobacco products, smokes one-half pack cigarettes per day. Screenin:47 Abuse screen: Denies threats or abuse. Denies injuries from another. Nutritional ss screening: No deficits noted. Tuberculosis screening: Never had TB. Fall Risk None identified. Assessment: 13:25 General: Appears in no apparent distress. comfortable, Behavior is calm, cooperative, ss drowsy, quiet. Pain: Complains of pain in right parietal area Pain currently is 10 out of 10 on a pain scale. Quality of pain is described as tender. Neuro: Level of Consciousness is awake, obeys commands, drowsy. Oriented to person, place, time, situation, Speech is normal, Pupils are PERRLA. Cardiovascular: Capillary refill < 3 seconds is brisk in bilateral fingers. Respiratory: Airway is patent Respiratory effort is even, unlabored, Respiratory pattern is regular, symmetrical. GI: Patient currently denies diarrhea, nausea, vomiting. EENT: Oral mucosa is moist. Derm: Skin is intact, is healthy with good turgor, Skin is dry, Skin is pink, warm \T\ dry. normal. 13:46 Reassessment: Pt back from CT. ss Vital Signs: 13:25 BP 159 / 92; Pulse 73; Resp 13; Temp 98.2(TE); Pulse Ox 99% on R/A; Weight 76.66 kg; ss Height 5 ft. 3 in. (160.02 cm); Pain 10/10; 13:25 Body Mass Index 29.94 (76.66 kg, 160.02 cm) ss Deforest Coma Score: 14:10 Eye Response: spontaneous(4). Verbal Response: oriented(5). Motor Response: obeys kb commands(6). Total: 15. 14:10 Eye Response: spontaneous(4). Verbal Response: oriented(5). Motor Response: obeys kb commands(6). Total: 15. ED Course: 13:25 Patient arrived in ED. em 13:25 Arm band placed on right wrist. ss 13:30 Nicole Cramer FNP-C [facility]. kb 13:30 Hector Lunsford MD is Attending Physician. kb 13:33 Nessa Patel, JACK is Primary Nurse. ss 13:44 CT Head Brain wo Cont In Process Unspecified. EDMS 13:47 Patient has correct armband on for positive identification. Bed in low position. Call ss light in reach. 13:59 Triage completed. ss 14:02 No provider procedures requiring assistance completed. Patient did not have IV access ss during this emergency room visit. Administered Medications: No medications were administered Outcome: 13:55 Discharge ordered by . kb 14:02 Discharged to home ambulatory. ss 14:02 Condition: good 14:02 Discharge instructions given to patient, Instructed on discharge instructions, follow up and referral plans. Demonstrated understanding of instructions, follow-up care. 14:03 Patient left the ED. ss Signatures: Dispatcher [employer] EDCO Nicole Cramer FNP-C FNP-Ckb Munoz, Edgar RN RN em Nessa Patel, RN RN ss
[2020-07-21 14:08] VITALS: BP 159/92; TEMP 98.2; O2SAT 99
== END 2020-07-21 14:03 ==
LOC: ER 13:15
DX: S00.90XA Unspecified superficial injury of unspecified part of head, initial encounter (principal); S00.01XA Abrasion of scalp, initial encounter; W01.10XA Fall on same level from slipping, tripping and stumbling with subsequent striking against unspecified object, initial encounter; Y93.9 Activity, unspecified; Y92.149 Unspecified place in prison as the place of occurrence of the external cause; F17.210 Nicotine dependence, cigarettes, uncomplicated
CPT/HCPCS: 70450; 99283